=== PATIENT | male | born 1955 | race Hispanic/Latino ===

== ENCOUNTER 2017-07-19 07:08 | Emergency (ER) | payer OTHER ==
[~2017-07-19] VITALS: Ht 170.2 cm; Wt 83.9 kg
[2017-07-19 08:42] VITALS: BP 138/86
== END 2017-07-19 08:10 | disposition home or self-care (01) ==
LOC: FSED 07:08
DX: S83.502A Sprain of unspecified cruciate ligament of left knee, initial encounter (principal); Y93.89 Activity, other specified; Y92.008 Other place in unspecified non-institutional (private) residence as the place of occurrence of the external cause; F17.210 Nicotine dependence, cigarettes, uncomplicated
CPT/HCPCS: 99283